=== PATIENT | female | born 1960 | race Caucasian/White ===

== ENCOUNTER 2016-09-04 13:24 | Emergency (ER) | payer BC ==
[~2016-09-04] VITALS: Ht 167.6 cm; Wt 71.2 kg
[2016-09-04] MEDS ORDERED: fentaNYL INJECTION 100 MCG/2 ML AMP IVP ONE (14:00)
[2016-09-04] MEDS ORDERED: ONDANSETRON 4 MG/2 ML (SDV) Z0FRAN IVP ONE (14:00)
--- NOTE | 2016-09-04 14:39 | Diagnostic Imaging Report ---
INDICATION: Fall, pain. FINDINGS: There is an impacted comminuted distal radial fracture with about 20 degrees of dorsal angulation. Articular extension of fracture lines present with the ulnar sided intra-articular fragment showing a minimal 1 mm depression. The distal ulna and the carpus are all intact. IMPRESSION: Impacted comminuted intra-articular dorsally angulated distal radial fractures without dislocation and intact ulna. Dictated by: Dictated on workstation # [id number]
--- NOTE | 2016-09-04 14:39 | Diagnostic Imaging Report ---
INDICATION: Left shoulder pain. Fall. FINDINGS: No fracture or dislocation is identified. IMPRESSION: No acute abnormality. Dictated by: Dictated on workstation # [id number]
[2016-09-04] MEDS: HYDROmorphone (DILAUDID) 2 MG/ML VIAL IVP PRN ×2 (14:54→16:21)
--- NOTE | 2016-09-04 15:22 | ED Upper Extremity ---
General Chief Complaint: Upper Extremity Stated Complaint: L ARM INJ Nursing Triage Note: AMB TO ROOM WITH SLIPPED AND FELL ON ICE PAIN IN L WRIST.SILVER RING WITH WHITE STONE REMOVED AND GIVEN TO Nursing Sepsis Screen: No Definite Risk Source: patient, family Exam Limitations: no limitations History of Present Illness Time seen by provider: 15:18 Initial Comments This 56-year-old white female presents after she will certainly fell on an outstretched left arm when she slipped on the ice shortly prior to presentation emergency department. Patient is complaining of pain and deformity over the radial aspect left wrist. Patient denies loss of sensation or range of motion affected extremity. Patient states that the pain left wrist radiates into left shoulder causing an ache in the area. She denies injury to the left elbow or shoulder and her fall. Patient denies other injury or accident. Patient's pain is sharp in nature, severe in quality, and radiates into her left shoulder. Allergies and Home Medications Allergies Coded Allergies: No Known Allergies (Verified Allergy, Unknown, 01/06/06) Constitutional: No chills, No fever EENTM: No ear pain, No throat pain Respiratory: No cough Cardiovascular: No chest pain Gastrointestinal: No abdominal pain, No diarrhea, No vomiting Genitourinary: No dysuria, No frequency Musculoskeletal: No back pain, joint pain (left wrist) Skin: No rash Psychiatric/Neurological: No Symptoms Reported Past Hkxwxor-Giizie-Ftbztu Hx Patient Social History Alcohol Use: Denies Use Recreational Drug Use: No Smoking Status: Never a Smoker Recent Foreign Travel: No Contact w/Someone Who Travel: No Recent Infectious Disease Expo: No Recent Hopitalizations: No Physical Abuse Screen: No Sexual Abuse: No Seasonal Allergies Seasonal Allergies: No Surgeries HX Surgeries: Yes Surgeries: Adenoidectomy, Appendectomy, Tonsillectomy Respiratory Hx Respiratory Disorders: No Cardiovascular Hx Cardiac Disorders: No Neurological Hx Neurological Disorders: No Reproductive System Hx Reproductive Disorders: No Genitourinary Hx Genitourinary Disorders: No Gastrointestinal Hx Gastrointestinal Disorders: No Musculoskeletal Hx Musculoskeletal Disorders: No Endocrine Hx Endocrine Disorders: No Cancer Hx Cancer: No Psychosocial Hx Psychiatric Problems: Yes Behavioral Health Disorders: Anxiety, Depression Reviewed Nursing Assessment Reviewed/Agree w Nursing PMH: Yes Physical Exam Vital Signs Vital Sign - Last 12Hours 09/04/16 13:32 Temp 98.8 Pulse 87 Resp 18 B/P 116/79 Pulse Ox 96 O2 Delivery Room Air Capillary Refill : Less Than 3 Seconds General Appearance: WD/WN mild distress HEENT: normal ENT inspection Neck: normal inspection Cardiovascular: regular rate, rhythm no murmur Respiratory: lungs clear Gastrointestinal: normal bowel sounds non tender soft Back: normal inspection Shoulder: normal inspection Elbow/Forearm: normal inspection Hand: Left, bone tenderness, limited ROM, swelling Neurologic/Tendon: normal sensation normal motor functions normal tendon functions Neurologic/Psychiatric: no motor/sensory deficits alert normal mood/affect Skin: normal color warm/dry other (no abrasions were noted) Progress/Results/Core Measures Results/Orders My Orders Orders-LEA MARQUEZ MD Fentanyl Injection (Sublimaze Injection (09/04/16 14:00) Ondansetron Injection (Zofran Injectio (09/04/16 14:00) Wrist, Left, 3 Views Or More (09/04/16 13:50) Shoulder, Left, 2 Views (09/04/16 13:50) Saline Lock/Iv-Start (09/04/16 14:10) Hydromorphone Injection (Dilaudid Inject (09/04/16 15:00) Ns Iv 1000 Ml (Sodium Chloride 0.9%) (09/04/16 15:30) Midazolam Injection (Versed Injection) (09/04/16 16:30) Hydromorphone Injection (Dilaudid Inject (09/04/16 16:30) Wrist, Left, 2 Views (09/04/16 16:33) Medications Given in ED Current Medications Medications Dose Ordered Sig/Niecy Route Start Time Stop Time Status Last Admin Dose Admin Fentanyl Citrate 50 mcg ONCE ONCE IVP 09/04/16 14:00 09/04/16 14:01 DC 09/04/16 14:06 50 MCG Hydromorphone HCl 1 mg ONCE ONCE IVP 09/04/16 16:30 09/04/16 16:31 DC 09/04/16 16:20 1 MG Hydromorphone HCl 1 mg Q4H PRN IVP 09/04/16 15:00 09/04/16 16:21 1 MG Midazolam HCl 5 mg ONCE ONCE IVP 09/04/16 16:30 09/04/16 16:31 DC 09/04/16 16:24 5 MG Ondansetron HCl 4 mg ONCE ONCE IVP 09/04/16 14:00 09/04/16 14:01 DC 09/04/16 14:05 4 MG Vital Signs/I&O Vital Sign - Last 12Hours 09/04/16 13:32 Temp 98.8 Pulse 87 Resp 18 B/P 116/79 Pulse Ox 96 O2 Delivery Room Air Blood Pressure Mean: 91 Progress Note : Time: 15:21 Progress Note The patient's x-ray demonstrated a comminuted angulated intra-articular fracture of the left distal radius. The patient was initially given 50 g fentanyl without significant improvement in her pain. Patient's pain was significantly improved with a milligram of Dilaudid IV. Dr. Brady was consulate who will see the patient in the emergency department. 4:[address] Brady reduced the fracture while I used an additional 1 mg of Dilaudid for analgesia and 4.5 mg of Versed for amnesia. The patient tolerated the procedure well. Her pulse oximeter remained at 100 percent throughout her reduction. Postreduction film demonstrated satisfactory alignment of the fracture. Patient will follow-up with orthopedics next week. I prescribed Vicodin for pain. Postreduction instructions were given to the patient which will focus on ice and elevation of the extremity. Departure Impression Impression: Primary Impression: Fracture of radius Qualified Code: S52.532A - Colles' fracture of left radius, initial encounter for closed fracture Disposition: HOME, SELF-CARE Condition: Improved Departure-Patient Inst. Decision time for Depature: 16:43 Referrals: HUI RUFF MD (PCP) Primary Care Physician DEBORAH BRADY MD Patient Instructions: Wrist Fracture (DC) Add. Discharge Instructions: Follow up with Dr. Villalpando (call office Tuesday). Vicodin for pain. Ice and elevate left arm. Come back if any problems. All discharge instructions reviewed with patient and/or family. Voiced understanding. LEA MARQUEZ MD Sep 04, 2016 15:22
[2016-09-04] MEDS ORDERED: NS IV 1000 ML 1,000 ML IV SCH (15:30)
[2016-09-04] MEDS ORDERED: HYDROmorphone (DILAUDID) 2 MG/ML VIAL IVP ONE (16:30)
[2016-09-04] MEDS ORDERED: MIDAZOLAM 5 MG/5 ML (VERSED) VIAL IVP ONE (16:30)
--- NOTE | 2016-09-04 16:54 | Diagnostic Imaging Report ---
INDICATION: Fracture. FINDINGS: Comminuted and impacted fracture of the distal radius is in much improved alignment with no substantial residual dorsal angulation. No articular offset. IMPRESSION: Distal radial fracture shows significant improvements in alignment. Resolution of its dorsal angulation. There is mild anterior displacement of the distal fragment. Dictated by: Dictated on workstation # [id number]
[2016-09-04 18:57] VITALS: BP 137/83
--- NOTE | 2016-09-05 17:37 | CONSULTATION REPORT ---
DATE OF CONSULTATION: 09/04/2016 REFERRING PHYSICIAN: CHIEF COMPLAINT: Left wrist pain. HISTORY OF THE PRESENT ILLNESS: Stephanie is a 56-year-old, right-hand dominant female who slipped and fell earlier today landing on her left outstretched wrist. She is awake, alert, and denies any other injuries. Otherwise is without complaint. She has only previously fractured her small toe and has no other complaints today. PAST MEDICAL HISTORY: Depression. PAST SURGICAL HISTORY: 1. Appendectomy. 2. Tonsils and adenoids. MEDICATIONS: Please see the emergency department runner for full details. Antidepressive medications. ALLERGIES: None. SOCIAL HISTORY: She denies tobacco or alcohol abuse. FAMILY HISTORY: Noncontributory. REVIEW OF SYSTEMS: Please see emergency department runner, otherwise relatively unremarkable except for some complaints of numbness and tingling in her left hand. Some mild left shoulder pain. PHYSICAL EXAMINATION: Temperature 98, pulse 87 respirations 18, blood pressure 116/79, 96% on room air. GENERAL: Alert, oriented, cooperative female. EXTREMITIES: Right upper extremity, bilateral lower extremities fails to demonstrate any swelling, deformity or signs of acute trauma. Left upper extremity reveals it to be swollen with an obvious dinner fork deformity of the wrist. Skin is intact. There is no sign of open injury. She has some tingling but intact light touch sensation to all of her digits. Brisk capillary refill. Elbow and shoulder are benign. RADIOGRAPHS: Demonstrate a displaced comminuted intra-articular distal radius and ulna fracture with dorsal angulation. IMPRESSION: Left closed Colles' fracture with intra-articular extension. RECOMMENDATION: After risks, benefits, and alteratives were discussed, she elected to proceed with reduction in the emergency department today. Conscious sedation was performed by Dr. Ji and then closed reduction maneuver was achieved with a satisfactory result. A long-arm sugar tong splint was applied with careful padding and postreduction films show a near-anatomic reduction achieved. Splint care, cast care and medications are going to be given by the emergency department. She will follow-up this week with Dr. Villalpando for discussion about operative versus continued nonoperative care. Job ID: [id number] Dictated Date: 09/04/2016 16:44:38 Training Director Date: 09/05/2016 17:28:44/david
== END 2016-09-04 18:57 | disposition home or self-care (01) ==
LOC: EDUNIT# 13:24 → ER 13:26
DX: S52.352A Displaced comminuted fracture of shaft of radius, left arm, initial encounter for closed fracture (principal); W00.0XXA Fall on same level due to ice and snow, initial encounter; Y99.8 Other external cause status
CPT/HCPCS: 29125; 73030; 73100; 73110; 93041; 96361; 96374; 96375; 96376

== ENCOUNTER 2019-05-31 08:53 | Outpatient (CLI) | payer BC ==
[~2019-05-31] VITALS: Ht 167.7 cm; Wt 60.5 kg
[2019-05-31] MEDS ORDERED: VORT10TA PO (09:18)
[2019-05-31] MEDS ORDERED: TOPI25TA10 PO (09:18)
[2019-05-31] MEDS ORDERED: ALPR1TAB7 PO (09:18)
== END 2019-05-31 10:13 | disposition home or self-care (01) ==
LOC: PREOP 08:53
PROVIDERS: ATTEND Surgery
DX: Z01.818 Encounter for other preprocedural examination (principal)

== ENCOUNTER 2019-06-01 12:31 | Day surgery (SDC) | payer BC ==
[2019-06-01] VITALS (11 sets, daily range): BP systolic 97–132; BP diastolic 56–98
[~2019-06-01] VITALS: Ht 167 cm; Wt 60.5 kg
[~2019-06-01 12:31] MED LIST: ALPR1TAB7 PO; TOPI25TA10 PO; VORT10TA PO
[2019-06-01] MEDS ORDERED: NS IV 500 ML 500 ML IV PRN (12:32)
[2019-06-01] MEDS ORDERED: NS IV 500 ML 500 ML ONE (12:33)
[2019-06-01] MEDS ORDERED: LIDOCAINE JELLY 2% 6 ML SYRINGE MM PRN (12:45)
[2019-06-01] MEDS ORDERED: fentaNYL INJECTION 100 MCG/2 ML AMP IVP ONE (12:45)
[2019-06-01] MEDS ORDERED: LIDOCAINE JELLY 2% 6 ML SYRINGE ONE (14:22)
[2019-06-01] MEDS ORDERED: fentaNYL INJECTION 100 MCG/2 ML AMP ONE ×2 (14:22)
[2019-06-01] MEDS ORDERED: MIDAZOLAM 5 MG/5 ML (VERSED) VIAL ONE ×2 (14:22→14:45)
[2019-06-01] MEDS: MIDAZOLAM 5 MG/5 ML (VERSED) VIAL IV PRN ×3 (14:31→14:50)
--- NOTE | 2019-06-01 18:56 | OPERATIVE REPORT ---
DATE OF SERVICE: 06/01/2019 ATTENDING PRIMARY CARE PHYSICIAN: Kaitlin Garcia MD PREOPERATIVE DIAGNOSES: Screening colonoscopy, family history of colon cancer. POSTOPERATIVE DIAGNOSIS: Chronic between stage II and III external hemorrhoids. PROCEDURE: Colonoscopy. SURGEON: Florentino Ortiz MD. ANESTHESIA: Conscious sedation. FINDINGS: Chronic stage between stage II and III external and internal hemorrhoids with some mild irritation most likely secondary to the prep. There were no polyps or any neoplasms identified throughout the colon or rectum. DISPOSITION: The patient tolerated the procedure well. INDICATIONS: The patient is a 58-year-old female in need of a screening colonoscopy. She has not had a colonoscopy up to this point in her life. She reports that her sister was recently diagnosed with stage IIIC colon cancer with a stage IV near-obstructing tumor identified at age 59. She underwent what sounds to be an extended left hemicolectomy and now undergo chemotherapy. Her only complaint is that she does have hemorrhoidal flareups on an intermittent basis as well as small amounts of self-limited blood per rectum. DESCRIPTION OF PROCEDURE: The patient was brought to the endoscopy suite, laid in the left lateral decubitus position. After adequate IV pain and sedative medications and conscious sedation anesthesia, a digital rectal examination was performed. Mild to moderate between stage II and III external and internal hemorrhoids were identified, which were mildly irritated, most likely secondary due to the prep. There were no thrombosed hemorrhoids identified. Normal sphincter tone was felt and there were no palpable masses. The endoscope was then intubated to the anus and rectum gently insufflated. The endoscope was then advanced to the valves of [place] of the rectum with no polyps or any neoplasms identified. We then proceeded through the sigmoid colon where no diverticulosis identified. We then advanced the scope to the descending, transverse and ascending colon to the cecum. These segments were normal. There were no polyps or any neoplasms identified throughout the colon or rectum. The endoscope was then slowly withdrawn while taking a second look and suctioning of residual air with no additional findings. The patient tolerated the procedure well. We will recommend conservative medical therapy with a high fiber diet with 25 to 30 grams of fiber per day as well as significant amounts of water daily to promote soft stools on a daily basis. We will also recommend Sitz baths as needed during hemorrhoidal flareups. We will recommend a followup colonoscopy in approximately 5 years due to her first degree family history of colon cancer. Job ID: [id number] DocumentID: [id number] Dictated Date: 06/01/2019 15:00:55 Feeder Operator Date: 06/01/2019 18:55:54 Dictated By: FLORENTINO ORTIZ MD
--- NOTE | 2019-06-01 21:40 | Conscious Sedation/ASA ---
Conscious Sedation Pre-Proced Time 13:00 ASA Score 2 For ASA 3 and 4: Consider anesthesia and medical clearance. Also, for patients with a history of failed moderate sedation consider anesthesia. Airway Lungs Heart ASA score ASA 1: a normal healthy patient ASA 2: a patient with a mild systemic disease (mid diabetes, controlled hypertension, obesity ASA 3: a patient with a severe systemic disease that limits activity (angina, COPD, prior Myocardial infarction) ASA 4: a patient with an incapacitating disease that is a constant threat to life (CHF, renal failure) ASA 5: a moribund patient not expected to survive 24 hrs. (ruptured aneurysm) ASA 6: a declared brain- patient whose organs are being harvested. For emergent operations, add the letter E after the classification Mallampati Classification Grade 2 Sedation Plan Analgesia, Amnesia, Plan communicated to team members, Discussed options with patient/fam, Discussed risks with patient/fam The patient is an appropriate candidate to undergo the planned procedure, sedation, and anesthesia. The patient immediately re-assessed prior to indication. FLORENTINO ORTIZ MD Jun 01, 2019 21:40
--- NOTE | 2019-06-01 21:41 | Progress Note-Pre Operative ---
Pre-Operative Progress Note H&P Reviewed The H&P was reviewed, patient examined and no changes noted. Date Seen by Provider: Jun 01, 2019 Time Seen by Provider: 13:00 Date H&P Reviewed: Jun 01, 2019 Time H&P Reviewed: 13:00 Pre-Operative Diagnosis: screening colonoscopy, family hx colon ca FLORENTINO ORTIZ MD Jun 01, 2019 21:41
--- NOTE | 2019-06-01 21:42 | Progress Note-Post Operative ---
Post-Operative Progess Note Surgeon (s)/General Utility Worker (s) Surgeon FLORENTINO ORTIZ MD General Utility Worker: none Pre-Operative Diagnosis screening colonoscopy, family hx colon ca Post-Operative Diagnosis acute on chronic stage 2-3 ext and int hemorroids. Procedure & Operative Findings Date of Procedure 06/01/19 Procedure Performed/Findings colonoscopy Anesthesia Type cs Estimated Blood Loss Estimated blood loss (mL): minimal Specimens/Packing Specimens Removed none FLORENTINO ORTIZ MD Jun 01, 2019 21:42
== END 2019-06-01 15:30 ==
LOC: ENDO 12:31
PROVIDERS: ATTEND Surgery
DX: Z12.11 Encounter for screening for malignant neoplasm of colon (principal); K64.1 Second degree hemorrhoids; K64.2 Third degree hemorrhoids; K64.8 Other hemorrhoids; K63.89 Other specified diseases of intestine; G43.909 Migraine, unspecified, not intractable, without status migrainosus; F41.8 Other specified anxiety disorders; Z90.89 Acquired absence of other organs; Z87.891 Personal history of nicotine dependence; Z79.899 Other long term (current) drug therapy; Z80.0 Family history of malignant neoplasm of digestive organs